=== PATIENT | female | born 1970 ===

== ENCOUNTER 2017-12-16 07:32 | Day surgery (SDC) | payer OTHER ==
[2017-12-16] MEDS ORDERED: Lactated Ringer's 500 ML IV ONE ×2 (08:07→10:10)
[2017-12-16] MEDS ORDERED: Propofol 10 mg/ml Inj (20 ML) ONE (09:43)
[2017-12-16] MEDS ORDERED: Midazolam 2 MG/2 ML VIAL ONE (09:43)
[2017-12-16 10:25] VITALS: TEMP 98
[2017-12-16 10:54] VITALS: BP 104/70; PULSE 74; RESP 16; O2SAT 100
== END 2017-12-16 11:37 | disposition home or self-care (01) ==
LOC: H.ENDO 07:32
PROVIDERS: ATTEND Internal Medicine Gastroenterology
DX: R10.30 Lower abdominal pain, unspecified (principal); K64.8 Other hemorrhoids; K57.30 Diverticulosis of large intestine without perforation or abscess without bleeding
CPT/HCPCS: 45378; J2001; J2250; J2704; J7120